=== PATIENT | female | born 1955 | race Caucasian/White ===

== ENCOUNTER 2017-10-10 10:35 | Outpatient (CLI) | payer OTHER ==
[2017-10-10 12:19] LABS: #Basophils 0.1 thou/uL (0.0-0.2); #Eosinphils 0.1 thou/uL (0.0-0.7); #Monocytes 0.4 thou/uL (0.11-0.59); #Neutrophils 4.1 thou/uL (1.40-6.50); %Basophils 0.9 % (0.0-1.0); %Eosinophils 2.1 % (0.0-10.0); %Lymphocytes 29.3 % (21.0-51.0); %Monocytes 6.5 % (0.0-10.0); %Neutrophils 61.2 % (42.0-75.0); Hemoglobin 12.4 g/dL (12.0-16.0); Mean Corpuscular HGB CONC 32.9 g/dL (32.0-36.0); Mean Corpuscular Hemoglobin 30.7 pg (27.0-31.0); Mean Corpuscular Volume 93.1 fl (81.0-99.0); Mean Platelet Volume 7.5 fL (7.4-10.4); Platelet Count 308 thou/uL (130-400); RBC Distribution Width 10.9 % (11.5-14.5); Red Blood Cell (RBC) Count 4.05 mill/uL (4.20-5.40); White Blood Cell (WBC) Count 6.7 thou/uL (4.8-10.8)
[2017-10-10 12:35] LABS: Anion Gap 14 mmol/L (10-20); BUN (Urea Nitrogen) 23 mg/dL (9.8-20.1); Calc. Creatinine Clearance 0 mL/min (70-130); Calcium 9.3 mg/dL (7.8-10.44); Carbon Dioxide 24 mmol/L (23-31); Chloride 105 mmol/L (98-107); Estimated GFR-MDRD 66; Glucose 85 mg/dL (80-115); Potassium 4.8 mmol/L (3.5-5.1); Sodium 138 mmol/L (136-145)
--- NOTE | 2017-10-10 12:50 | RAD ---
TWO VIEWS OF THE CHEST: COMPARISON: None. HISTORY: Preoperative radiograph prior to the operating room on 10/16/17. FINDINGS: Two views of the chest show normal sized cardiomediastinal silhouette. There is no evidence of consol idation, mass, or pleural effusion. The bones are unremarkable. IMPRESSION: No evidence of acute cardiopulmonary disease. POS: [facility]
--- NOTE | 2017-10-11 07:19 | EKG ---
Test Reason : Blood Pressure : / mmHG Vent. Rate : 068 BPM Atrial Rate : 068 BPM P-R Int : 162 ms QRS Dur : 088 ms QT Int : 394 ms P-R-T Axes : 051 036 052 degrees QTc Int : 418 ms Normal sinus rhythm Normal ECG No previous ECGs available Confirmed by CELSO ABBASI, DR. Carson (4) on 10/11/2017 7:18:55 AM Referred By: ZULMA Confirmed By:DR. Alli HOUSTON MD
== END 2017-10-10 10:36 | disposition home or self-care (01) ==
LOC: LABBT 10:35
PROVIDERS: ATTEND Surgery
DX: Z01.818 Encounter for other preprocedural examination (principal); C18.9 Malignant neoplasm of colon, unspecified; K94.00 Colostomy complication, unspecified
CPT/HCPCS: 71046; 80048; 85025; 93005; 93010

== ENCOUNTER 2017-10-16 06:00 | Inpatient (IN) | payer OTHER ==
[2017-10-10 11:06] VITALS: BMI 29.3
[2017-10-16] MEDS ORDERED: cefOXitin 2 GM, Syringe 1 ML in Sterile Water 10 ML SLOW IVP SCH (06:30)
[2017-10-16] MEDS ORDERED: Midazolam HCl 2 mg/2 ml Vial ONE (06:39)
[2017-10-16] MEDS ORDERED: Fentanyl 100 MCG/2 ML VIAL ONE ×2 (06:39→07:16)
[2017-10-16] MEDS ORDERED: Dexamethasone 4 mg/ml Vial ONE (06:43)
[2017-10-16] MEDS ORDERED: Ondansetron HCl/PF 4 MG/2 ML Vial IVP PRN ×2 (09:48→11:05)
[2017-10-16] MEDS ORDERED: Promethazine HCl 25 MG/ML VIAL IM PRN ×2 (09:48→11:05)
[2017-10-16] MEDS ORDERED: Promethazine HCl 25 MG/ML VIAL SLOW IVP PRN (09:48)
[2017-10-16] MEDS ORDERED: hydrALAZINE 20 MG/ML VIAL SLOW IVP PRN (11:05)
[2017-10-16] MEDS ORDERED: Fentanyl 100 MCG/2 ML VIAL SLOW IVP PRN ×2 (11:05)
[2017-10-16] MEDS: cefOXitin 2 GM, Syringe 1 ML in Sterile Water 10 ML SLOW IVP SCH ×2 (12:35→22:45)
[2017-10-16] MEDS: Acetaminophen 1,000 MG in Premix Bag 1 BAG IVPB SCH ×2 (12:51→18:31)
[2017-10-16] MEDS: D5 1/2 NS w/20 mEq KCL 1,000 ML IV SCH (13:59)
[2017-10-16] MEDS ORDERED: cefOXitin 2 GM in Sodium Chloride 0.9% 100 ML IVPB SCH (14:00)
[2017-10-16] MEDS: Ketorolac Tromethamine 30 MG/ML VIAL IVP PRN ×2 (15:49→21:11)
[2017-10-16] MEDS ORDERED: Bupivacaine HCl 0.5%/Epinephrine 1:200,000/PF 30 ml Vial ONE (16:00)
[2017-10-16] MEDS ORDERED: PHENYLEPHRINE-NS 100 MCG/ML 10 ML SYRINGE ONE (16:28)
[2017-10-16] MEDS ORDERED: Glycopyrrolate 0.2 MG/ML 5 ML SYRINGE ONE (16:28)
[2017-10-16] MEDS ORDERED: Propofol 200 MG/20 ML VIAL ONE (16:28)
[2017-10-16] MEDS ORDERED: Dexamethasone 20 MG/5 ML VIAL ONE (16:28)
[2017-10-16] MEDS ORDERED: Ketorolac Tromethamine 30 MG/ML VIAL ONE (16:28)
[2017-10-16] MEDS ORDERED: Ondansetron HCl/PF 4 MG/2 ML Vial ONE (16:28)
[2017-10-16] MEDS: Famotidine 20 MG TAB PO SCH (21:05)
[2017-10-16] MEDS: Famotidine/PF 20 mg/2ml Vial SLOW IVP SCH (21:11)
[2017-10-16] MEDS: Enoxaparin Sodium 40 MG/0.4 ML SYRINGE SC SCH (21:11)
[2017-10-17] MEDS: Acetaminophen 1,000 MG in Premix Bag 1 BAG IVPB SCH ×2 (00:34→06:09)
[2017-10-17] MEDS: Ketorolac Tromethamine 30 MG/ML VIAL IVP PRN ×2 (03:22→09:30)
[2017-10-17] MEDS: D5 1/2 NS w/20 mEq KCL 1,000 ML IV SCH (03:24)
[2017-10-17 04:12] LABS: #Monocytes 0.9 thou/uL (0.11-0.59); #Neutrophils 9.8 thou/uL (1.40-6.50); %Basophils 0.1 % (0.0-1.0); %Eosinophils 0.1 % (0.0-10.0); %Lymphocytes 15.5 % (21.0-51.0); %Monocytes 7.3 % (0.0-10.0); %Neutrophils 77.1 % (42.0-75.0); Hemoglobin 10.6 g/dL (12.0-16.0); Mean Corpuscular HGB CONC 33.5 g/dL (32.0-36.0); Mean Corpuscular Hemoglobin 31.5 pg (27.0-31.0); Mean Corpuscular Volume 93.9 fl (81.0-99.0); Mean Platelet Volume 7.8 fL (7.4-10.4); Platelet Count 249 thou/uL (130-400); RBC Distribution Width 10.9 % (11.5-14.5); Red Blood Cell (RBC) Count 3.36 mill/uL (4.20-5.40); White Blood Cell (WBC) Count 12.8 thou/uL (4.8-10.8)
[2017-10-17 04:32] LABS: Anion Gap 9 mmol/L (10-20); BUN (Urea Nitrogen) 9 mg/dL (9.8-20.1); Calc. Creatinine Clearance 82 mL/min (70-130); Calcium 8.6 mg/dL (7.8-10.44); Carbon Dioxide 24 mmol/L (23-31); Chloride 108 mmol/L (98-107); Estimated GFR-MDRD 67; Glucose 112 mg/dL (80-115); Potassium 4.2 mmol/L (3.5-5.1); Sodium 137 mmol/L (136-145)
[2017-10-17] MEDS: Famotidine 20 MG TAB PO SCH ×2 (08:07→19:55)
[2017-10-17] MEDS: Famotidine/PF 20 mg/2ml Vial SLOW IVP SCH ×2 (08:08→19:55)
[2017-10-17] MEDS ORDERED: HYDROcodone/Acetaminophen 10/325 mg Tablet PO PRN (09:18)
--- NOTE | 2017-10-17 14:10 | PDOC.GSPN ---
Surgery Progress Note: Subj - Subjective Patient reports: tolerating liquids well (No nausea with clears) Surgery Progress Note: Obj - Vital signs Vital signs: Vital Signs - Most Recent Temp Pulse Resp BP Pulse Ox 98.1 F 71 12 111/66 96 10/17/17 11:09 10/17/17 11:09 10/17/17 11:09 10/17/17 11:09 10/17/17 11:09 - Physical Exam General: no distress Cardiovascular: regular rate and rhythm Respiratory: clear to auscultation Abdomen: soft, nondistended, decreased bowel sounds Wound: healing well Surgery Progress Note: Results - Labs Result Diagrams: 10/17/17 03:10 10/17/17 03:10 Lab results: Laboratory Results - last 24 hr 10/17/17 10/17/17 03:10 03:10 WBC 12.8 H RBC 3.36 L Hgb 10.6 L Hct 31.5 L MCV 93.9 MCH 31.5 H MCHC 33.5 RDW 10.9 L Plt Count 249 MPV 7.8 Neutrophils % 77.1 H Lymphocytes % 15.5 L Monocytes % 7.3 Eosinophils % 0.1 Basophils % 0.1 Neutrophils # 9.8 H Lymphocytes # 2.0 Monocytes # 0.9 H Eosinophils # 0.0 Basophils # 0.0 Sodium 137 Potassium 4.2 Chloride 108 H Carbon Dioxide 24 Anion Gap 9 L BUN 9 L Creatinine 0.85 Estimated GFR (MDRD) 67 Glucose 112 Calcium 8.6 Surgery Progress Note: A/P - Problem (1) Attention to colostomy Current Visit: Yes Code(s): Z43.3 - ENCOUNTER FOR ATTENTION TO COLOSTOMY Status: Acute Assessment and Plan: Heplock IV fluids. Full liquids, continue ambulating. (2) Hx of colon cancer, stage II Current Visit: Yes Code(s): Z85.038 - PERSONAL HISTORY OF MALIGNANT NEOPLASM OF LARGE INTESTINE Status: Acute
[2017-10-17] MEDS: traMADol HCl 50 MG TAB PO PRN (15:10)
--- NOTE | 2017-10-17 15:46 | OP ---
DATE OF SERVICE: 10/16/2017 PREOPERATIVE DIAGNOSES: 1. History of colon cancer. 2. Attention to colostomy. POSTOPERATIVE DIAGNOSES: 1. History of colon cancer. 2. Attention to colostomy. PROCEDURE: Colostomy takedown with low pelvic anastomosis. SURGEON: Baljinder Garcia M.D. ANESTHESIA: General. ESTIMATED BLOOD LOSS: Minimal. COMPLICATIONS: None. FINDINGS: No obvious intra-abdominal malignancy. DESCRIPTION OF PROCEDURE: The patient was taken to the operating room and placed supine on the table . After general anesthetic was obtained, a Astudillo was placed. The patient was placed in lithotomy po sition. Her colostomy was sewn and shut via pursestring of silk suture. The abdomen was prepped and draped in a sterile fashion. Midline incision was made from above the umbilicus down towards the pu bis. Cautery dissected into the abdominal cavity. There were a few adhesions in the abdomen that we re taken down using sharp dissection. The small bowel was able to be brought up out of the pelvis. There were some small bowel adhesions down in the pelvis that were taken down sharply. The rectal st ump was found and a full rectal stump dissection was taken down into the pelvic space in the upper re ctum. A contour stapler was fired across rectum thus removing the end of the rectal stump leaving go od tissue down below for the anastomosis. Next, the colostomy mucosa was ellipsed out from the skin in the left abdomen. All adhesions were taken down all the way into the abdominal cavity. The proxi mal colon was able to be brought down through this. The proximal colon does reach down into the pelv is under no tension. Colotomy was made just proximal to the skin level of the colostomy and 31 anvil was passed proximally and sharp pin brought out on antimesenteric surface of the colon above this di stal colotomy and the skin part of the colostomy was then removed by firing a reload of the contour s tapler just distal to where the angle of His. The mesentery was taken using impact LigaSure. The fo rmer colostomy segment and proximal colon was then brought down into the pelvis under no tension. Th e base for the 31 EEA is brought up through the anus on the antimesenteric surface of the rectum belo w connected to the anvil from above and the anastomosis was fired. After tightening down into the gr een zone, there were two good rings of tissue obtained. The anastomosis oversewed using silk serosal sutures. Pelvis was irrigated copiously. There was no ongoing bleeding, no injury to any intra-abd ominal structure. The left ureter had been found and excluded from the dissection. All instrument c ounts, needle counts, and lap counts were correct. Posterior colostomy fascia site was closed using running PDS. The anterior fascia was closed using [id number] PDS. Midline fascia was closed us ing #1 PDS from the top and the bottom and tied in the middle. Subcutaneous tissues are irrigated us ing 3 liters of sterile saline and meticulous hemostasis was obtained with cautery and the wound was closed using 3-0 Vicryl, 4-0 Monocryl, and Dermabond. The colostomy site is closed using a pursestri ng of Prolene suture and a 0.25-inch Rola was left in the middle. The patient was en route to rec overy in stable condition. All instrument counts, needle counts, and lap counts were correct.
[2017-10-17] MEDS: Enoxaparin Sodium 40 MG/0.4 ML SYRINGE SC SCH (19:55)
[2017-10-18] MEDS: HYDROcodone/Acetaminophen 10/325 mg Tablet PO PRN ×4 (03:06→21:32)
[2017-10-18] MEDS: Famotidine 20 MG TAB PO SCH ×2 (08:39→20:26)
[2017-10-18] MEDS: Famotidine/PF 20 mg/2ml Vial SLOW IVP SCH (08:40)
--- NOTE | 2017-10-18 12:29 | PRG ---
DATE OF SERVICE: 10/18/2017 SUBJECTIVE: Ms. Hernandez is feeling okay today. She is tolerating her full liquid diet. She is havin g some pain mostly at her incision, but the oral pain medications are controlling this. She had docu mented bowel movements on her ins and outs, but she states this was just a small amount of blood clot . She denies passage of any stool or flatus yet. She is not nauseated. Her abdomen is soft and non distended. Her incisions are healing well without erythema or fluctuance. Vital signs are stable. ASSESSMENT AND PLAN: Awaiting return of bowel function following colostomy takedown. Continue full liquids and frequent ambulation.
[2017-10-18] MEDS: traMADol HCl 50 MG TAB PO PRN ×2 (12:51→14:21)
[2017-10-18] MEDS: Docusate 100 MG CAP PO SCH (17:37)
[2017-10-18] MEDS: Enoxaparin Sodium 40 MG/0.4 ML SYRINGE SC SCH (20:26)
[2017-10-19] MEDS: HYDROcodone/Acetaminophen 10/325 mg Tablet PO PRN (02:21)
[2017-10-19] MEDS: Docusate 100 MG CAP PO SCH (08:42)
[2017-10-19] MEDS: Famotidine 20 MG TAB PO SCH (08:42)
[2017-10-19] MEDS: traMADol HCl 50 MG TAB PO PRN (08:44)
[2017-10-19 12:35] VITALS: BP 145/77; TEMP 98.4
--- NOTE | 2017-10-19 15:12 | DIS ---
DATE OF ADMISSION: 10/16/2017 DATE OF DISCHARGE: 10/19/2017 FINAL DIAGNOSIS: Status post colostomy takedown. HOSPITAL COURSE: Ms. Hernandez is a 62-year-old woman who is status post colonoscopy at [facility]. Dr. Garcia performed a colostomy takedown on her on the and postoperatively she recovered w ell. Her bowel function resumed and she has passed flatus and had a bowel movement. She is tolerati ng her full liquid diet without any nausea. Her shelli-incisional tenderness is diminishing and easily controlled on oral medications and she is ambulating without assistance. She is being discharged ho va with scheduled followup with Dr. Garcia. She had a drain at her colostomy site, which was remove d yesterday and she is to keep that area clean and covered with gauze and to leave the Dermabond in p lace at her other incisions. She is to continue her prehospital medications, which include p.r.n. Ty lenol, docusate, Mucinex, and magnesium oxide. She was also given prescriptions for Story and tramad ol by Dr. Garcia.
== END 2017-10-19 13:45 | disposition home or self-care (01) | DRG 331 ==
LOC: SDC 06:00 → SURG A 09:26
PROVIDERS: ADMIT Surgery; ATTEND Surgery
PROC: 0DBE0ZZ Excision of Large Intestine, Open Approach (ICD-10-PCS; principal; 2017-10-16)
PROC: 3E0T3BZ Introduction of Anesthetic Agent into Peripheral Nerves and Plexi, Percutaneous Approach (ICD-10-PCS; 2017-10-16)
PROC: 3E0T33Z Introduction of Anti-inflammatory into Peripheral Nerves and Plexi, Percutaneous Approach (ICD-10-PCS; 2017-10-16)
DX: Z43.3 Encounter for attention to colostomy (principal); I83.90 Asymptomatic varicose veins of unspecified lower extremity; Z85.038 Personal history of other malignant neoplasm of large intestine; M19.90 Unspecified osteoarthritis, unspecified site
CPT/HCPCS: 36415; 80048; 85025; 88304; 88307; A4216; J0131; J0670; J0694; J1100; J1650; J1885; J2250; J2405; J2704; J3010; S0028

== ENCOUNTER 2018-06-17 13:43 | Outpatient (CLI) | payer MEDICARE, MEDICAID ==
--- NOTE | 2018-06-17 14:29 | RAD ---
3 VIEWS LEFT KNEE: Date: 06/17/18 COMPARISON: None. HISTORY: Knee pain and swelling. FINDINGS: Severe medial compartment narrowing noted with prominent osteophyte formation of the medial femoral c ondyle and medial tibial plateau. The bones appear demineralized. There is moderate patellofemoral mar int space narrowing. No knee joint effusion, fracture, or evidence of dislocation. IMPRESSION: Degenerative joint disease as described above. POS: [facility]
== END 2018-06-17 13:44 | disposition home or self-care (01) ==
LOC: SCSRAD 13:43
PROVIDERS: ATTEND Family Medicine
DX: M25.562 Pain in left knee (principal); M17.12 Unilateral primary osteoarthritis, left knee

== ENCOUNTER 2018-12-03 05:30 | Outpatient (CLI) | payer MEDICARE, MEDICAID ==
[2018-12-03 10:28] LABS: #Basophils 0.1 thou/uL (0.0-0.2); #Eosinphils 0.2 thou/uL (0.0-0.7); #Lymphocytes 1.9 thou/uL (1.20-3.40); #Monocytes 0.6 thou/uL (0.11-0.59); #Neutrophils 3.9 thou/uL (1.40-6.50); %Basophils 0.9 % (0.0-1.0); %Eosinophils 2.7 % (0.0-10.0); %Lymphocytes 28.8 % (21.0-51.0); %Monocytes 9.1 % (0.0-10.0); %Neutrophils 58.5 % (42.0-75.0); Hemoglobin 12.1 g/dL (12.0-16.0); Mean Corpuscular HGB CONC 33.1 g/dL (32.0-36.0); Mean Corpuscular Hemoglobin 30.9 pg (27.0-31.0); Mean Corpuscular Volume 93.2 fL (78.0-98.0); Mean Platelet Volume 7.6 fL (7.4-10.4); Platelet Count 303 thou/uL (130-400); RBC Distribution Width 11.2 % (11.5-14.5); Red Blood Cell (RBC) Count 3.91 mill/uL (4.20-5.40); White Blood Cell (WBC) Count 6.6 thou/uL (4.8-10.8)
[2018-12-03 10:38] LABS: Prothrombin Time 12.9 SEC (12.0-14.7)
[2018-12-03 10:50] LABS: Anion Gap 13 mmol/L (10-20); BUN (Urea Nitrogen) 28 mg/dL (9.8-20.1); Calc. Creatinine Clearance 0 mL/min (70-130); Calcium 9.5 mg/dL (7.8-10.44); Carbon Dioxide 23 mmol/L (23-31); Chloride 106 mmol/L (98-107); Estimated GFR-MDRD 71; Glucose 96 mg/dL (80-115); Potassium 4.4 mmol/L (3.5-5.1); Sodium 138 mmol/L (136-145)
[2018-12-03 11:22] LABS: Bilirubin Negative (Negative); Blood, Urine Negative (Negative); Clarity CLEAR (Clear); Glucose, Urine (Dipstick) Negative (Negative); Leukocyte Negative (Negative); Nitrite Positive (Negative); Protein, Urine (Dipstick) Negative (Neg-Trace); Specific Gravity, Urine 1.027 (1.002-1.036); Urobilinogen 0.2 mg/dL (0.2-1.0); pH, Urine 5.5 (5.0-9.0)
[2018-12-03 11:27] LABS: Bacteria/HPF 4+ HPF (None Seen); Hyaline Casts/LPF 0-3 HYALINE CAST LPF (0-3 Hyaline); RBC/HPF 0-3 HPF (0-3); Squamous Epithelial None Seen HPF (0-3)
--- NOTE | 2018-12-03 20:26 | EKG ---
Test Reason : Blood Pressure : / mmHG Vent. Rate : 060 BPM Atrial Rate : 060 BPM P-R Int : 176 ms QRS Dur : 080 ms QT Int : 394 ms P-R-T Axes : 051 061 071 degrees QTc Int : 394 ms Normal sinus rhythm Normal ECG When compared with ECG of 10-OCT-2017 11:37, No significant change was found Confirmed by DR. Nando ANTONIO (3) on 12/03/2018 8:25:41 PM Referred By: IERO Confirmed By:DR. Nando ANTONIO
== END 2018-12-03 05:31 | disposition home or self-care (01) ==
LOC: LABBT 05:30
PROVIDERS: ATTEND Orthopaedic Surgery
DX: Z01.818 Encounter for other preprocedural examination (principal); M17.12 Unilateral primary osteoarthritis, left knee
CPT/HCPCS: 80048; 81001; 85025; 85610; 87081; 93005; 93010

== ENCOUNTER 2018-12-14 05:23 | Inpatient (IN) | payer MEDICARE, MEDICAID ==
[2018-12-03 09:16] VITALS: BMI 29.2
[2018-12-14] MEDS ORDERED: Tranexamic Acid 1,000 MG/10 ML VIAL ONE ×2 (05:55→09:05)
[2018-12-14] MEDS ORDERED: Sodium Chloride 0.9% 100 ML ONE (05:55)
[2018-12-14] MEDS ORDERED: Fentanyl 100 MCG/2 ML VIAL ONE ×2 (06:33→07:49)
[2018-12-14] MEDS ORDERED: Midazolam HCl 2 mg/2 ml Vial ONE (06:33)
[2018-12-14] MEDS ORDERED: Sodium Chloride 0.9% 10 ML ONE (06:34)
[2018-12-14] MEDS ORDERED: Lidocaine 1% (PF) 30 ML VIAL ONE (06:40)
[2018-12-14] MEDS ORDERED: HYDROcodone/Acetaminophen 10/325 mg Tablet PO PRN (07:18)
[2018-12-14] MEDS ORDERED: Ropivacaine HCl/PF 250 ML in Premix Bag 1 BAG NERVE BLCK SCH (07:18)
[2018-12-14] MEDS ORDERED: traMADol HCl 50 MG TAB PO PRN ×2 (07:18)
[2018-12-14] MEDS ORDERED: Promethazine HCl 25 MG/ML VIAL IM PRN ×2 (07:18→07:28)
[2018-12-14] MEDS ORDERED: Zolpidem Tartrate 5 MG TAB PO PRN ×2 (07:18→07:28)
[2018-12-14] MEDS ORDERED: Ondansetron PF 4 MG/2 ML Vial IVP PRN ×2 (07:18→07:28)
[2018-12-14] MEDS ORDERED: Fentanyl 100 MCG/2 ML VIAL IV PRN (07:20)
[2018-12-14] MEDS ORDERED: diphenhydrAMINE 25 MG CAP PO PRN (07:28)
[2018-12-14] MEDS ORDERED: Acetaminophen 325 MG TAB PO PRN (07:28)
[2018-12-14] MEDS ORDERED: Tranexamic Acid 1,000 MG in Sodium Chloride 0.9% 100 ML IVPB SCH (07:30)
[2018-12-14] MEDS ORDERED: Bupivacaine PF 0.5% 30 ML VIAL ONE (07:51)
[2018-12-14] MEDS ORDERED: IRON 45 MG PO SCH (09:00)
[2018-12-14] MEDS ORDERED: Non-Formulary Item 1 EACH (Multivit-Min/Fa/Lycopen/Lutein [Centrum Silver Tablet] 1 EACH) PO SCH (09:00)
[2018-12-14] MEDS ORDERED: Pseudoephedrine HCl 30 MG TAB PO SCH (09:00)
--- NOTE | 2018-12-14 11:46 | OP ---
DATE OF PROCEDURE: 12/14/2018 PREOPERATIVE DIAGNOSIS: Left knee osteoarthrosis. POSTOPERATIVE DIAGNOSIS: Left knee osteoarthrosis. PROCEDURE PERFORMED: Left total knee replacement using [email or web address] pinless navigation. MGMT CONSULTANT: Dennis Sarah PA-C. BLOOD LOSS: Minimal. COMPLICATIONS: None. ANESTHESIA: She had general anesthetic. She also had a preoperative block. IMPLANTS: [place] triathlon knee system. The femur was a size 4 cruciate retaining, tibial base plate was a size 3 primary base plate. We used a 3 x 9 mm CS X3 poly and we used a symmetric 27 x 8 X3 patella. DISPOSITION: She did go to recovery room in stable condition. INDICATIONS: A 63-year-old female, who has been treated for left knee arthritis for quite some time. At this time, she has failed nonoperative treatment and wished to have her knee replaced. DESCRIPTION OF PROCEDURE: After all appropriate consent forms were explained and signed, the patient was taken back to the operating room and at this time was given general anesthetic. Once the level of anesthesia was appropriate, a well-padded tourniquet was placed on the left leg, and the leg was then prepped and draped in standard surgical fashion. The limb was exsanguinated and tourniquet taken up to 300 mmHg. Midline incision was made with a 10 blade down through the skin and subcutaneous tissue. Bovie electrocautery was used to coagulate any brisk venous bleeding. A new blade was used to make a medial parapatellar arthrotomy. Small subperiosteal release was performed medially and excess fat pad was removed. The knee was flexed up to gain access to the femur. The femur was navigated and distal femoral resection was made. Epicondylar access was used to align our sizing jig and this was pinned in place. We sized our femur to be a 4 cruciate retaining. 4:1 cutting block was applied and pinned. Anterior and posterior chamfer cuts were then made. We navigated out our proximal tibia and made our proximal tibial resection. Spreaders were used to remove any posterior osteophytes off the back of the femur as well as remaining meniscal tissue. A long alignment matthew was then used to achieve correct rotation of our tibial baseplate and a size 3 primary base plate was chosen. This was pinned in place. We trialed the polyethylene and a 3 x 9 mm CS X3 polyethylene gave us full extension and good stability throughout range of motion. Two towel clips and a saw were used to cut our patella. Three lug nuts were drilled and symmetric 27 x 8 X3 patella was trialed which sat nicely in the trochlear groove. We then drilled our femur and punched our tibia. All components were removed. The knee was thoroughly irrigated and dried. Cement was mixed into the cement gun on the back table. Components were then placed. The knee was held out in full extension until the cement had dried. All excess bone cement was removed. Multiple #2 Vicryl stitches as well as a Quill were used to close our extensor mechanism. 0 Quill followed by a running Monoderm was then used to close the skin. Surgicel glue was then used on the skin. Once this had dried, soft tissue dressing was applied to the limb, tourniquet was let down, and the toes pinked up nicely. The patient was then awakened and taken to the recovery room in stable condition. All counts were correct at the end of the case. The patient did receive preoperative IV antibiotics. The patient was injected with Exparel for postoperative pain relief. Job ID: [id number]
[2018-12-14] MEDS: Amlodipine 5 MG TAB PO SCH (12:04)
[2018-12-14] MEDS: Docusate Sodium 100 MG/10 ML UDCUP PO SCH ×2 (12:05→20:11)
[2018-12-14] MEDS: Magnesium Oxide 400 MG TAB PO SCH ×2 (12:05→20:02)
[2018-12-14] MEDS: Aspirin 81 mg Enteric Coated Tablet PO SCH ×2 (12:05→20:02)
[2018-12-14] MEDS: Calcium Carbonate + Vit D 1 TAB PO SCH (12:05)
[2018-12-14] MEDS ORDERED: Ropivacaine 0.5% HCl/PF (150 MG/30 ML VIAL) ONE (14:03)
[2018-12-14] MEDS ORDERED: Bupivacaine HCl 0.5%/Epinephrine 1:200,000/PF 30 ml Vial ONE (14:03)
[2018-12-14] MEDS: Dextrose 5 %-0.45 % NaCl 1,000 ML IV SCH ×2 (14:20→19:51)
[2018-12-14] MEDS: Ketorolac Tromethamine 30 MG/ML VIAL IVP PRN ×2 (14:20→20:15)
[2018-12-14] MEDS: CEFAZOLIN 2 GM in Premix Bag 1 BAG IVPB SCH ×2 (14:21→21:17)
--- NOTE | 2018-12-14 16:53 | PDOC.PN ---
- Subjective Encounter Start Date: 12/14/18 Encounter Start Time: 16:40 Subjective: Patient had left TKA this AM, some aching earlier but relieved with -: Toradol. No other complaints. - Objective MAR Reviewed: Yes Vital Signs & Weight: Vital Signs (12 hours) Temp Pulse Resp BP Pulse Ox 12/14/18 15:00 97.8 F 76 14 135/76 98 Weight Weight 170 lb Phys Exam - Physical Examination Constitutional: NAD HEENT: moist MMs, oral pharynx no lesions Neck: no nodes, no JVD, supple Respiratory: no wheezing, no rales, no rhonchi Cardiovascular: RRR, no significant murmur Gastrointestinal: soft, non-tender, positive bowel sounds left knee in post op dressing Neurological: non-focal, moves all 4 limbs Psychiatric: normal affect, A&O x 3 Dx/Plan (1) Hypertension Code(s): I10 - ESSENTIAL (PRIMARY) HYPERTENSION Status: Chronic Comment: Continue home amlodipine (2) Hx of colon cancer, stage II Code(s): Z85.038 - PERSONAL HISTORY OF MALIGNANT NEOPLASM OF LARGE INTESTINE Status: Resolved Comment: s/p previous colectomy, colostomy, and revision. Will continue home stool softener and magnesium (3) Sinus headache Code(s): R51 - HEADACHE Status: Chronic Comment: asymptomatic currently, continue daily Sudafed (4) Osteoarthritis of left knee Code(s): M17.12 - UNILATERAL PRIMARY OSTEOARTHRITIS, LEFT KNEE Status: Chronic Comment: s/p Left TKA 12/14/2018 - Plan cont current plan of care, PT/OT, DVT proph w/SCDs continue home meds, thank you for the consult, we are happy to follow -: along during the course of the hospitalization * . - Discharge Day Encounter end time: 16:55
[2018-12-14] MEDS ORDERED: PROPOFOL 200 MG/20 ML VIAL ONE (17:01)
[2018-12-14] MEDS ORDERED: Lidocaine 1% PF 5 ML VIAL ONE (17:01)
[2018-12-14] MEDS ORDERED: Ondansetron PF 4 MG/2 ML Vial ONE (17:01)
[2018-12-14] MEDS ORDERED: Dexamethasone 20 MG/5 ML VIAL ONE (17:01)
[2018-12-14] MEDS ORDERED: Vancomycin HCl 1.5 GM in Sodium Chloride 0.9% 250 ML 300 ML IVPB SCH (19:00)
[2018-12-15] MEDS: Ketorolac Tromethamine 30 MG/ML VIAL IVP PRN (02:34)
[2018-12-15] MEDS: Dextrose 5 %-0.45 % NaCl 1,000 ML IV SCH ×2 (02:38→12:16)
[2018-12-15 04:42] LABS: Hemoglobin 10.8 g/dL (12.0-16.0); Mean Corpuscular HGB CONC 34.1 g/dL (32.0-36.0); Mean Corpuscular Volume 93.7 fL (78.0-98.0); Mean Platelet Volume 6.9 fL (7.4-10.4); Platelet Count 259 thou/uL (130-400); RBC Distribution Width 10.8 % (11.5-14.5); Red Blood Cell (RBC) Count 3.37 mill/uL (4.20-5.40); White Blood Cell (WBC) Count 9.4 thou/uL (4.8-10.8)
[2018-12-15] MEDS: Senokot S 8.6-50 MG TAB PO SCH ×2 (08:56→20:20)
[2018-12-15] MEDS: Ferrous Gluconate 324 MG TAB PO SCH ×2 (08:57→20:20)
[2018-12-15] MEDS: Aspirin 81 mg Enteric Coated Tablet PO SCH ×2 (08:57→20:20)
[2018-12-15] MEDS: Multivitamin W/ Minerals 1 TAB PO SCH (08:57)
[2018-12-15] MEDS: Magnesium Oxide 400 MG TAB PO SCH ×2 (08:58→20:20)
[2018-12-15] MEDS: Calcium Carbonate + Vit D 1 TAB PO SCH (08:58)
[2018-12-15] MEDS: Amlodipine 5 MG TAB PO SCH (08:58)
--- NOTE | 2018-12-15 10:01 | PDOC.PN ---
- Subjective Encounter Start Date: 12/15/18 Encounter Start Time: 12:30 Subjective: Patient not in room when came by to see twice, chart reviewed, BP -: well controlled. - Objective MAR Reviewed: Yes Vital Signs & Weight: Vital Signs (12 hours) Temp Pulse Resp BP Pulse Ox 12/15/18 08:58 75 12/15/18 07:20 98 F 75 12 136/76 96 12/15/18 04:00 98.5 F 96 18 137/76 95 12/15/18 00:00 98.2 F 78 18 143/80 H 95 Weight Weight 170 lb I&O: 12/14/18 12/15/18 12/16/18 06:59 06:59 06:59 Intake Total 4031.0 Output Total 5650 Balance -1619.0 Result Diagrams: 12/15/18 04:18 Dx/Plan (1) Hypertension Code(s): I10 - ESSENTIAL (PRIMARY) HYPERTENSION Status: Chronic Comment: Continue home amlodipine, well controlled (2) Hx of colon cancer, stage II Code(s): Z85.038 - PERSONAL HISTORY OF MALIGNANT NEOPLASM OF LARGE INTESTINE Status: Resolved Comment: s/p previous colectomy, colostomy, and revision. Will continue home stool softener and magnesium (3) Sinus headache Code(s): R51 - HEADACHE Status: Chronic Comment: asymptomatic currently, continue daily Sudafed (4) Osteoarthritis of left knee Code(s): M17.12 - UNILATERAL PRIMARY OSTEOARTHRITIS, LEFT KNEE Status: Chronic Comment: s/p Left TKA 12/14/2018 - Plan cont current plan of care, PT/OT, DVT proph w/SCDs * . - Discharge Day Encounter end time: 12:35
--- NOTE | 2018-12-15 12:18 | PRG ---
DATE OF SERVICE: 12/15/2018 SUBJECTIVE: Josie is a 63-year-old white female, postop day 1 from left total knee arthroplasty. Her pain is relatively well controlled on p.o. medications and the blocks. OBJECTIVE: VITAL SIGNS: She is afebrile. GENERAL: Alert and oriented to person, place, time, situation, grossly nonfocal. EXTREMITIES: Visual inspection of left knee in a stretcher have no strike through, and she is neurovascularly rash intact in the left lower extremity. LABORATORY DATA: Hemoglobin and hematocrit 10 and 31. IMPRESSION: A 63-year-old female, postop day 1, left total knee arthroplasty, doing well. PLAN: Continue current care. Recheck and probable discharge tomorrow. Job ID: [id number]
[2018-12-15] MEDS: HYDROcodone/Acetaminophen 10/325 mg Tablet PO PRN ×3 (13:13→22:21)
[2018-12-15] MEDS: Docusate Sodium 100 MG/10 ML UDCUP PO SCH (17:50)
[2018-12-15] MEDS: Docusate Calcium (SURFAK) 240 MG CAP PO SCH (20:20)
[2018-12-16] MEDS: Dextrose 5 %-0.45 % NaCl 1,000 ML IV SCH ×2 (00:30→13:52)
[2018-12-16] MEDS: HYDROcodone/Acetaminophen 10/325 mg Tablet PO PRN ×3 (03:25→12:50)
[2018-12-16 06:01] LABS: Hemoglobin 11.3 g/dL (12.0-16.0); Mean Corpuscular Hemoglobin 31.5 pg (27.0-31.0); Mean Corpuscular Volume 95.4 fL (78.0-98.0); Mean Platelet Volume 6.9 fL (7.4-10.4); Platelet Count 313 thou/uL (130-400); Red Blood Cell (RBC) Count 3.59 mill/uL (4.20-5.40); White Blood Cell (WBC) Count 11.4 thou/uL (4.8-10.8)
[2018-12-16] MEDS: Amlodipine 5 MG TAB PO SCH (08:45)
[2018-12-16] MEDS: Magnesium Oxide 400 MG TAB PO SCH (08:46)
[2018-12-16] MEDS: Calcium Carbonate + Vit D 1 TAB PO SCH (08:46)
[2018-12-16] MEDS: Senokot S 8.6-50 MG TAB PO SCH (08:46)
[2018-12-16] MEDS: Docusate Calcium (SURFAK) 240 MG CAP PO SCH (08:46)
[2018-12-16] MEDS: Aspirin 81 mg Enteric Coated Tablet PO SCH (08:47)
[2018-12-16] MEDS: Multivitamin W/ Minerals 1 TAB PO SCH (08:47)
[2018-12-16] MEDS: Ferrous Gluconate 324 MG TAB PO SCH (08:47)
[2018-12-16 15:25] VITALS: BP 158/69; TEMP 98.5
== END 2018-12-16 16:38 | disposition home or self-care (01) | DRG 470 ==
LOC: SDC 05:23 → SJJU 10:57
PROVIDERS: ADMIT Orthopaedic Surgery; ATTEND Orthopaedic Surgery
PROC: 0SRD0J9 Replacement of Left Knee Joint with Synthetic Substitute, Cemented, Open Approach (ICD-10-PCS; principal; 2018-12-14)
DX: M17.12 Unilateral primary osteoarthritis, left knee (principal); I10 Essential (primary) hypertension; Z85.038 Personal history of other malignant neoplasm of large intestine; R51 Headache
CPT/HCPCS: 36415; 36416; 85027; 86850; 86900; 86901; C1713; C1776; J0670; J1100; J1885; J2001; J2250; J2405; J2704; J2795; J3010; J3370; J7050; S0020

== ENCOUNTER 2019-08-12 07:18 | Outpatient (CLI) | payer MEDICARE, MEDICAID ==
[2019-08-12 09:38] LABS: #Eosinphils 0.2 thou/uL (0.0-0.7); #Lymphocytes 1.8 thou/uL (1.20-3.40); #Monocytes 0.6 thou/uL (0.11-0.59); #Neutrophils 4.1 thou/uL (1.40-6.50); %Basophils 0.7 % (0.0-1.0); %Eosinophils 3.5 % (0.0-10.0); %Lymphocytes 26.9 % (21.0-51.0); %Monocytes 8.5 % (0.0-10.0); %Neutrophils 60.4 % (42.0-75.0); Hemoglobin 12.5 g/dL (12.0-16.0); Mean Corpuscular HGB CONC 34.3 g/dL (32.0-36.0); Mean Corpuscular Hemoglobin 31.9 pg (27.0-31.0); Mean Platelet Volume 6.9 fL (7.4-10.4); Platelet Count 303 thou/uL (130-400); RBC Distribution Width 10.4 % (11.5-14.5); Red Blood Cell (RBC) Count 3.92 mill/uL (4.20-5.40); White Blood Cell (WBC) Count 6.8 thou/uL (4.8-10.8)
[2019-08-12 09:41] LABS: Bacteria/HPF None Seen HPF (None Seen); Bilirubin Negative (Negative); Blood, Urine Negative (Negative); Clarity Clear (Clear); Glucose, Urine (Dipstick) Normal (Negative); Leukocyte Negative Leu/uL (Negative); Nitrite Negative (Negative); Protein, Urine (Dipstick) Negative (Neg-Trace); RBC/HPF 0-3 HPF (0-3); Squamous Epithelial None Seen HPF (0-3); Urobilinogen Normal mg/dL (Less than 2); WBC/HPF 0-3 HPF (0-3)
[2019-08-12 09:52] LABS: Prothrombin Time 13.1 SEC (12.0-14.7)
[2019-08-12 09:58] LABS: Anion Gap 11 mmol/L (10-20); BUN (Urea Nitrogen) 28 mg/dL (9.8-20.1); Calc. Creatinine Clearance 0 mL/min (70-130); Calcium 8.9 mg/dL (7.8-10.44); Carbon Dioxide 26 mmol/L (23-31); Chloride 105 mmol/L (98-107); Estimated GFR-MDRD 60; Glucose 81 mg/dL (80-115); Sodium 138 mmol/L (136-145)
--- NOTE | 2019-08-15 14:21 | EKG ---
Test Reason : Blood Pressure : / mmHG Vent. Rate : 068 BPM Atrial Rate : 068 BPM P-R Int : 180 ms QRS Dur : 080 ms QT Int : 376 ms P-R-T Axes : 063 028 061 degrees QTc Int : 399 ms Normal sinus rhythm Normal ECG When compared with ECG of 03-DEC-2018 09:50, No significant change was found Confirmed by OLIVE RODRIGEZ (2) on 08/15/2019 2:21:33 PM Referred By: MARK Confirmed By:OLIVE RODRIGEZ
== END 2019-08-12 07:19 | disposition home or self-care (01) ==
LOC: LABBT 07:18
PROVIDERS: ATTEND Orthopaedic Surgery
DX: Z01.818 Encounter for other preprocedural examination (principal); M17.11 Unilateral primary osteoarthritis, right knee
CPT/HCPCS: 80048; 81001; 85025; 85610; 87081; 93005; 93010

== ENCOUNTER 2019-08-23 05:25 | Day surgery (SDC) | payer MEDICARE, MEDICAID ==
[2019-08-23] MEDS ORDERED: Tranexamic Acid 1,000 MG/10 ML VIAL ONE ×2 (06:17→08:49)
[2019-08-23] MEDS ORDERED: Sodium Chloride 0.9% 100 ML ONE (06:17)
[2019-08-23] MEDS ORDERED: Fentanyl 100 MCG/2 ML VIAL ONE ×2 (06:29→07:48)
[2019-08-23] MEDS ORDERED: Midazolam HCl 2 mg/2 ml Vial ONE (06:29)
[2019-08-23] MEDS ORDERED: Lidocaine 1% (PF) 30 ML VIAL ONE (06:29)
[2019-08-23] MEDS ORDERED: Zolpidem Tartrate 5 MG TAB PO PRN ×2 (06:44→07:05)
[2019-08-23] MEDS ORDERED: traMADol HCl 50 MG TAB PO PRN ×2 (06:44)
[2019-08-23] MEDS ORDERED: Promethazine HCl 25 MG/ML VIAL IM PRN ×3 (06:44→07:52)
[2019-08-23] MEDS ORDERED: HYDROcodone/Acetaminophen 10/325 mg Tablet PO PRN (06:44)
[2019-08-23] MEDS ORDERED: Ropivacaine HCl/PF 250 ML in Premix Bag 1 BAG NERVE BLCK SCH (06:44)
[2019-08-23] MEDS ORDERED: Ondansetron PF 4 MG/2 ML Vial IVP PRN ×2 (06:44→07:05)
[2019-08-23] MEDS ORDERED: Fentanyl 100 MCG/2 ML VIAL IV PRN (06:45)
[2019-08-23] MEDS ORDERED: Bupivacaine PF 0.5% 30 ML VIAL ONE (06:49)
[2019-08-23] MEDS ORDERED: Acetaminophen 325 MG TAB PO PRN (07:05)
[2019-08-23] MEDS ORDERED: diphenhydrAMINE 25 MG CAP PO PRN (07:05)
[2019-08-23] MEDS ORDERED: Tranexamic Acid 1,000 MG in Sodium Chloride 0.9% 100 ML IVPB SCH (07:15)
[2019-08-23] MEDS ORDERED: Ondansetron HCl/PF 4 MG/2 ML Vial IVP PRN (07:52)
[2019-08-23] MEDS ORDERED: Promethazine HCl 25 MG/ML VIAL SLOW IVP PRN (07:52)
[2019-08-23] MEDS ORDERED: PSEUDOEPHEDRINE PO SCH (09:00)
[2019-08-23] MEDS ORDERED: IRON 45 MG PO SCH (09:00)
[2019-08-23] MEDS ORDERED: Non-Formulary Item 1 EACH (Multivit-Min/Fa/Lycopen/Lutein [Centrum Silver Tablet] 1 EACH) PO SCH (09:00)
[2019-08-23] MEDS: Aspirin 81 mg Enteric Coated Tablet PO SCH ×2 (10:28→21:00)
[2019-08-23] MEDS: Amlodipine 5 MG TAB PO SCH (10:28)
[2019-08-23] MEDS: Sodium Chloride 0.9% 1,000 ML IV SCH ×2 (10:28→19:02)
[2019-08-23] MEDS: Calcium Carbonate + Vit D 1 TAB PO SCH (10:28)
[2019-08-23] MEDS: Stress 600 With Zinc 1 TAB PO SCH (10:29)
[2019-08-23] MEDS: guaiFENesin ER 600 MG TAB PO SCH ×2 (10:29→21:00)
[2019-08-23] MEDS: Docusate Sodium 100 MG/10 ML UDCUP PO SCH ×2 (10:29→21:01)
[2019-08-23] MEDS: Magnesium Oxide 400 MG TAB PO SCH (10:29)
--- NOTE | 2019-08-23 11:55 | OP ---
DATE OF PROCEDURE: 08/23/2019 PREOPERATIVE DIAGNOSIS: Right knee osteoarthrosis. POSTOPERATIVE DIAGNOSIS: Right knee osteoarthrosis. PROCEDURES PERFORMED: Right total knee replacement using [employer] pinless navigation system. KENNEL AIDE: Dennis Sarah PA-C ESTIMATED BLOOD LOSS: Minimal. COMPLICATIONS: None. ANESTHESIA: She had general anesthetic. She also had a preoperative block. IMPLANTS: To the right knee, [place] triathlon total knee system with a size 3 cruciate retaining femur. We used a size 3 primary tibial base plate, 3 x 9 mm CS X3 tibial bearing and a symmetric 27 x 8 X3 patella. DISPOSITION: She did go to recovery room in stable condition. INDICATIONS: This is a 64-year-old female, who has had right knee arthritis for years. Earlier this year, she had her left knee replaced and she has had really good relief with this and at this time, she wished to have the right knee replaced as well. TOURNIQUET TIME: PROCEDURE IN DETAIL: After all appropriate consent forms were explained and signed, the patient was taken back to the operating room and at this time was given general anesthetic. Once the level of anesthesia was appropriate, a well-padded tourniquet was placed on the right leg, and the leg was then prepped and draped in standard surgical fashion. The limb was exsanguinated and tourniquet taken up to 300 mmHg. Midline incision was made with a 10 blade down through the skin and subcutaneous tissue. Bovie electrocautery was used to coagulate any brisk venous bleeding. A new blade was used to make a medial parapatellar arthrotomy. Small subperiosteal release was performed medially and excess fat pad was removed. The knee was flexed up to gain access to the femur. The femur was navigated and distal femoral resection was made. Epicondylar access was used to align our sizing jig and this was pinned in place. We sized our femur to be a 3. 4:1 cutting block was applied and pinned. Anterior and posterior chamfer cuts were then made. We navigated out our proximal tibia and made our proximal tibial resection. Spreaders were used to remove any posterior osteophytes off the back of the femur as well as remaining meniscal tissue. A long alignment matthew was then used to achieve correct rotation of our tibial baseplate and a size 3 was chosen. This was pinned in place. We trialed the polyethylene and a 3 x 9 mm CS X3 tibial bearing polyethylene gave us full extension and good stability throughout range of motion. Two towel clips and a saw were used to cut our patella. Three lug nuts were drilled and 27 x 8 X3 patella was trialed which sat nicely in the trochlear groove. We then drilled our femur and punched our tibia. All components were removed. The knee was thoroughly irrigated and dried. Cement was mixed into the cement gun on the back table. Components were then placed. The knee was held out in full extension until the cement had dried. All excess bone cement was removed. Multiple #2 Vicryl stitches as well as a Quill were used to close our extensor mechanism. 0 Quill followed by a running Monoderm was then used to close the skin. Surgicel glue was then used on the skin. Once this had dried, soft tissue dressing was applied to the limb, tourniquet was let down, and the toes pinked up nicely. The patient was then awakened and taken to the recovery room in stable condition. All counts were correct at the end of the case. The patient did receive preoperative IV antibiotics. The patient was injected with Marcaine for postoperative pain relief. Job ID: [id number] [facility]
[2019-08-23] MEDS ORDERED: Ketorolac Tromethamine 30 MG/ML VIAL IVP SCH (12:00)
[2019-08-23] MEDS ORDERED: EPINEPHrine 1 MG/10 ML Abboject SYRINGE ONE (14:47)
[2019-08-23] MEDS ORDERED: PROPOFOL 200 MG/20 ML VIAL ONE (14:47)
[2019-08-23] MEDS ORDERED: Lidocaine 1% PF 5 ML VIAL ONE (14:47)
[2019-08-23] MEDS ORDERED: Ropivacaine 0.5% HCl/PF (150 MG/30 ML VIAL) ONE (14:47)
[2019-08-23] MEDS ORDERED: Ropivacaine 0.2% HCl/PF (40 MG/20 ML VIAL) ONE (14:47)
[2019-08-23] MEDS ORDERED: Ondansetron PF 4 MG/2 ML Vial ONE (14:47)
[2019-08-23] MEDS ORDERED: Ketorolac Tromethamine 30 MG/ML VIAL ONE (14:47)
[2019-08-23] MEDS: CEFAZOLIN 2 GM in Premix Bag 1 BAG IVPB SCH ×2 (14:52→21:05)
[2019-08-23] MEDS: Ketorolac Tromethamine 30 MG/ML VIAL IVP SCH ×2 (14:53→21:00)
[2019-08-23] MEDS ORDERED: Vancomycin HCl 1 GM in Premix Bag 1 BAG IVPB SCH (18:00)
[2019-08-23] MEDS: HYDROcodone/Acetaminophen 10/325 mg Tablet PO PRN (21:01)
--- NOTE | 2019-08-23 22:24 | PDOC.HOSPP ---
- Subjective Encounter Date: 08/23/19 Encounter Time: 15:00 Subjective: Patient seen and examined for med mngt. Pain controlled. No CP/SOB. No new complaints. - Objective Vital Signs & Weight: Vital Signs (12 hours) Temp Pulse Resp BP Pulse Ox 08/23/19 19:34 98.1 F 81 17 169/78 H 98 Weight Weight 175 lb I&O: 08/22/19 08/23/19 08/24/19 06:59 06:59 06:59 Intake Total 670 Output Total 775 Balance -105 Result Diagrams: 08/24/19 05:11 Additional Labs: Laboratory Tests 08/12/19 09:22 BUN 28 H Creatinine 0.94 EKG Reviewed by me: Yes (SR) Hospitalist ROS - Review of Systems Respiratory: denies: cough, dry, shortness of breath, hemoptysis, SOB with excertion, pleuritic pain, sputum, wheezing, other Cardiovascular: denies: chest pain, palpitations, orthopnea, paroxysmal noc. dyspnea, edema, light headedness, other Gastrointestinal: denies: nausea, vomiting, abdominal pain, diarrhea, constipation, melena, hematochezia, other - Medication Medications: Active Medications Generic Name Dose Route Start Last Admin Trade Name Freq PRN Reason Stop Dose Admin Hydrocodone Bitart/Acetaminophen 1 tab 08/23/19 06:44 08/23/19 21:01 [place] 10/325 PO 1 tab Q4H PRN Administration Pain (1-3) Amlodipine Besylate 5 mg 08/23/19 09:00 08/23/19 10:28 Norvasc PO Not Given QAM [facility] Aspirin 81 mg 08/23/19 09:00 08/23/19 21:00 Ecotrin PO 81 mg BID [facility] Administration Calcium/Vitamin D 1 tab 08/23/19 09:00 08/23/19 10:28 Caltrate 600 + Vit D PO Not Given DAILY [facility] Cholecalciferol 1,000 units 08/23/19 09:00 08/23/19 10:28 Vitamin D3 PO Not Given DAILY [facility] Docusate Sodium 250 mg 08/23/19 09:00 08/23/19 21:01 Colace Liquid PO 250 mg BID LM Administration Guaifenesin 1,200 mg 08/23/19 09:00 08/23/19 21:00 Mucinex PO 1,200 mg BID LM Administration Cefazolin Sodium/Dextrose 2 gm 50 mls @ 100 mls/hr 08/23/19 14:00 08/23/19 21 :05 / Device IVPB 08/23/19 22:29 50 mls Q8HR LM Administration Sodium Chloride 1,000 mls @ 100 mls/hr 08/23/19 07:15 08/23/19 19:02 Normal Saline 0.9% IV Not Given .Q10H LM Ketorolac Tromethamine 15 mg 08/23/19 15:00 08/23/19 21:00 Toradol IVP 08/25/19 09:01 15 mg Q6H LM Administration Magnesium Oxide 400 mg 08/23/19 09:00 08/23/19 10:29 Magnesium Oxide PO Not Given DAILY [facility] Multivitamins/Zinc 1 tab 08/23/19 09:00 08/23/19 10:29 Stress 600 With Zinc PO Not Given DAILY LM - Exam General Appearance: NAD Neck: supple, no JVD Heart: RRR, no gallops, normal peripheral pulses Respiratory: CTAB, no wheezes, no rales, no ronchi, normal chest expansion Gastrointestinal: soft, non-distended Extremities: no edema Neurological: no new deficit Hosp A/P - Plan DVT proph w/SCDs HTN DJD h/o Colon CA Obesity BMI 30 CKD 2 PLAN: Cont Amlodipine Pain control DVT prophylaxis PT/OT Cont other meds Full code. DPOA - family
[2019-08-24] MEDS: Ketorolac Tromethamine 30 MG/ML VIAL IVP SCH ×4 (02:25→20:30)
[2019-08-24] MEDS: HYDROcodone/Acetaminophen 10/325 mg Tablet PO PRN ×2 (02:25→07:10)
[2019-08-24] MEDS: Sodium Chloride 0.9% 1,000 ML IV SCH ×2 (03:56→16:56)
[2019-08-24 05:43] LABS: Hemoglobin 10.8 g/dL (12.0-16.0); Mean Corpuscular HGB CONC 33.9 g/dL (32.0-36.0); Mean Corpuscular Hemoglobin 31.7 pg (27.0-31.0); Mean Corpuscular Volume 93.5 fL (78.0-98.0); Mean Platelet Volume 6.9 fL (7.4-10.4); Platelet Count 244 thou/uL (130-400); RBC Distribution Width 10.7 % (11.5-14.5); Red Blood Cell (RBC) Count 3.39 mill/uL (4.20-5.40)
--- NOTE | 2019-08-24 08:32 | PRG ---
DATE OF SERVICE: 08/24/2019 SUBJECTIVE: Josie is a 64-year-old female, postop day 1 from right total knee arthroplasty. She is doing very well. She is comfortable. She ambulated 200 feet yesterday evening and had no difficulty. OBJECTIVE: VITAL SIGNS: Temperature 98.4, pulse 64, respiratory rate 16 and nonlabored, blood pressure is 152/73. GENERAL: She is alert and oriented to person, place, time, situation, responsive and appropriate with examiner, nonfocal. EXTREMITIES: Her incision is clean. No strike through. She is neurovascularly intact in the right lower extremity. LABORATORY DATA: Hemoglobin and hematocrit 10.8 and 31.7. IMPRESSION: 1. A 64-year-old female postop day 1 right total knee arthroplasty, doing well. 2. Mild asymptomatic anemia. PLAN: Continue current care and probable discharge to home tomorrow. Job ID: [id number]
[2019-08-24] MEDS: Multivitamin W/ Minerals 1 TAB PO SCH (08:48)
[2019-08-24] MEDS: Aspirin 81 mg Enteric Coated Tablet PO SCH ×2 (08:48→20:29)
[2019-08-24] MEDS: Magnesium Oxide 400 MG TAB PO SCH (08:48)
[2019-08-24] MEDS: Calcium Carbonate + Vit D 1 TAB PO SCH (08:49)
[2019-08-24] MEDS: Amlodipine 5 MG TAB PO SCH (08:49)
[2019-08-24] MEDS: Senokot S 8.6-50 MG TAB PO SCH ×2 (08:49→20:29)
[2019-08-24] MEDS: Ferrous Gluconate 324 MG TAB PO SCH ×2 (08:49→18:20)
[2019-08-24] MEDS: guaiFENesin ER 600 MG TAB PO SCH ×2 (08:49→20:30)
[2019-08-24] MEDS ORDERED: Ondansetron ODT 4 MG TAB PO PRN (09:49)
[2019-08-24] MEDS: Stress 600 With Zinc 1 TAB PO SCH (10:39)
[2019-08-24] MEDS ORDERED: Labetalol HCl 100 MG/20 ML VIAL SLOW IVP PRN (14:37)
[2019-08-24] MEDS: Docusate Sodium 100 MG/10 ML UDCUP PO SCH (16:00)
[2019-08-24] MEDS: Docusate 100 MG CAP PO SCH (20:29)
[2019-08-24] MEDS ORDERED: Docusate 100 MG CAP PO SCH (21:00)
[2019-08-25] MEDS: Sodium Chloride 0.9% 1,000 ML IV SCH ×2 (00:32→15:29)
[2019-08-25] MEDS ORDERED: Amlodipine 5 MG TAB PO SCH (02:00)
[2019-08-25] MEDS: Ketorolac Tromethamine 30 MG/ML VIAL IVP SCH ×2 (02:25→15:28)
[2019-08-25] MEDS: Docusate 100 MG CAP PO SCH (09:00)
[2019-08-25] MEDS: Aspirin 81 mg Enteric Coated Tablet PO SCH (09:00)
[2019-08-25] MEDS: guaiFENesin ER 600 MG TAB PO SCH (09:00)
[2019-08-25] MEDS: Calcium Carbonate + Vit D 1 TAB PO SCH (09:00)
[2019-08-25] MEDS: Ferrous Gluconate 324 MG TAB PO SCH (09:00)
[2019-08-25] MEDS: Multivitamin W/ Minerals 1 TAB PO SCH (09:00)
[2019-08-25] MEDS: Amlodipine 5 MG TAB PO SCH (09:00)
[2019-08-25] MEDS: Senokot S 8.6-50 MG TAB PO SCH (09:00)
[2019-08-25] MEDS: HYDROcodone/Acetaminophen 10/325 mg Tablet PO PRN ×2 (09:10→15:01)
[2019-08-25 13:39] VITALS: BP 166/75; TEMP 98.3
[2019-08-25] MEDS: Magnesium Oxide 400 MG TAB PO SCH (15:23)
[2019-08-25] MEDS: Stress 600 With Zinc 1 TAB PO SCH (15:29)
[2019-08-25 19:43] LABS: Mean Corpuscular HGB CONC 34.2 g/dL (32.0-36.0); Mean Corpuscular Hemoglobin 31.9 pg (27.0-31.0); Mean Corpuscular Volume 93.2 fL (78.0-98.0); Mean Platelet Volume 9.1 fL (7.4-10.4); Platelet Count 274 thou/uL (130-400); RBC Distribution Width 10.8 % (11.5-14.5); Red Blood Cell (RBC) Count 3.45 mill/uL (4.20-5.40)
== END 2019-08-25 15:45 | disposition home or self-care (01) ==
LOC: SDC 05:25 → SJJU 07:08 → SDC 08-25 15:45
PROVIDERS: ATTEND Orthopaedic Surgery
PROC: 0SRC0J9 Replacement of Right Knee Joint with Synthetic Substitute, Cemented, Open Approach (ICD-10-PCS; principal; 2019-08-23)
DX: M17.11 Unilateral primary osteoarthritis, right knee (principal); D64.9 Anemia, unspecified; I12.9 Hypertensive chronic kidney disease with stage 1 through stage 4 chronic kidney disease, or unspecified chronic kidney disease; N18.2 Chronic kidney disease, stage 2 (mild); E66.9 Obesity, unspecified; Z68.30 Body mass index [BMI] 30.0-30.9, adult; Z85.038 Personal history of other malignant neoplasm of large intestine; Z79.1 Long term (current) use of non-steroidal anti-inflammatories (NSAID); Z79.899 Other long term (current) drug therapy; Z90.49 Acquired absence of other specified parts of digestive tract; Z96.652 Presence of left artificial knee joint
CPT/HCPCS: 27447; 85027; 97110 ×2; 97116 ×3; 97139 ×2; 97150 ×2; 97530 ×2; 98961; C1713; C1776; 36415; J0171; J0690; J1885; J2001; J2250; J2405; J2704; J2795; J3010; J3370; J3490; S0020

== ENCOUNTER 2021-09-06 08:56 | Outpatient (CLI) | payer MEDICARE, MEDICAID | END 2021-09-06 08:57 | disposition home or self-care (01) | LOC: NM 08:56 | PROVIDERS: ATTEND Psychiatry & Neurology Neurology | DX: G20 Parkinson's disease (principal) | CPT/HCPCS: 78803; A9584 ==